=== PATIENT | male | born 1945 | race Caucasian/White ===

== ENCOUNTER 2021-03-24 13:08 | Emergency (ER) | payer MEDICARE ==
[~2021-03-24] VITALS: Ht 170.2 cm; Wt 83.9 kg
[~2021-03-24 13:08] MED LIST: OXYACE5T PO; TOBR.3OPO OP
== END 2021-03-24 14:38 | disposition left against medical advice (07) ==
LOC: ER 13:08
DX: R11.2 Nausea with vomiting, unspecified (principal); R19.7 Diarrhea, unspecified; Z53.21 Procedure and treatment not carried out due to patient leaving prior to being seen by health care provider
CPT/HCPCS: 99281